=== PATIENT | male | born 1945 | race Caucasian/White ===

== ENCOUNTER 2018-05-27 10:26 | Day surgery (SDC) | payer MEDICARE ==
[2012-09-30 00:24] VITALS: BMI 31.9
[~2018-05-27 10:26] MED LIST: Midazolam 2 MG/2 ML VIAL ONE; Propofol 10 mg/ml Inj (20 ML) ONE
[2018-05-27] MEDS ORDERED: cefTRIAXone (Rocephin) 1 gm Inj ONE (10:51)
[2018-05-27] MEDS ORDERED: HYDROmorphone 0.5 mg/0.5 ml ISec IVP PRN (11:13)
[2018-05-27] MEDS ORDERED: Lactated Ringer's 1,000 ML IV SCH (11:15)
--- NOTE | 2018-05-27 11:49 | CARD ---
APPROVED REPORT Date of service: 05/27/2018 EKG Measurement Heart [id number] <Conclusion> Normal sinus rhythm Normal ECG
[2018-05-27 12:10] VITALS: PULSE 63; RESP 18; TEMP 97.5; O2SAT 95
[2018-05-27 13:19] VITALS: BP 127/74
--- NOTE | 2018-06-08 02:12 | HP ---
DATE OF EXAM: 06/07/2018 REASON FOR CONSULTATION: Elevated PSA. HISTORY OF PRESENT ILLNESS: This is a very pleasant gentleman with voiding dysfunction, irritating and obstructing urinary complaints, decreased force of stream, nocturia, and no gross hematuria currently. Elevated PSA, voiding dysfunction, nocturia . PAST MEDICAL AND SURGICAL HISTORY: IA and CVA. FAMILY HISTORY: As noted. SOCIAL HISTORY: Essentially unremarkable. REVIEW OF SYSTEMS: As above. No weight loss, chest pain, shortness of breath or leg pain. MEDICATIONS: See chart. ALLERGIES: SEE CHART. PHYSICAL EXAMINATION: GENERAL: Well nourished male, in no apparent distress. VITAL SIGNS: Normal. LUNGS: Clear. ABDOMEN: Soft and nontender. GENITOURINARY: Normal phallus. There are no testicular masses. RECTAL: A 30 g prostate, soft and smooth nodule is appreciated. LABORATORY DATA: See chart. PSA noted. DIAGNOSES: Elevated prostate specific antigen, voiding dysfunction, nocturia, irritating and obstructive voiding. PLAN: In summary, very pleasant gentleman with history as above, irritative and obstructive complaints, more obstructive in nature. we discussed options, risks, benefits, and alternatives to plans. FOLLOWUP: 1. Antibiotic prophylaxis. 2. Ultrasound of the prostate. 3. Ultrasound-guided prostate biopsy clinically. Risks and benefits discussed with the patient at length. We will plan to proceed. Faraz Neumann MD
--- NOTE | 2018-06-08 09:35 | PN ---
DATE: 05/27/2018 IMMEDIATE POSTOPERATIVE NOTE SUBJECTIVE: See the history and physical and operative note. This is an immediate postop note. The patient is status post prostate ultrasound and biopsy, antibiotic prophylactics were used. The patient is with vital signs within normal limits. He is in recovery room, now remains stable. The plan is as follows. We will discharge the patient home on antibiotics, and then further plans will follow. Faraz Neumann MD
--- NOTE | 2018-06-08 11:10 | PN ---
DATE: 05/27/2018 IMMEDIATE POSTOPERATIVE NOTE See history and physical and operative note. This is an immediate postop note. The patient is in recovery room. He is status post prostate ultrasound and biopsy. Antibiotic prophylaxis used. Extra antibiotics provided to the patient, and the patient would go home with antibiotics. This is an immediate postop note, the vital signs remained stable. The plan will be outpatient followup biopsy to get his prostate biopsy result. The patient is encouraged to call if any questions or problems that arise. He is given my cell phone number directly plus he is doing texting me to confirm appointment, etc., so he knows how to reach me very well. The patient is very reliable. He will be discharged home in stable condition. Faraz Neumann MD
--- NOTE | 2018-06-08 16:13 | PN ---
DATE: 05/27/2018 See the history and physical and operative note. The patient underwent a prostate biopsy, ultrasound-guided biopsy. Postop, he is doing well. His bladder function is normal. He is in the recovery room. This is an immediate postop note. Blood loss is less than 10 mL. He is doing well. The plan will be outpatient antibiotics. Faraz Neumann MD
--- NOTE | 2018-06-08 22:09 | OP ---
PROCEDURE DATE: 05/27/2018 PREOPERATIVE DIAGNOSES: Elevated prostate-specific antigen, voiding dysfunction, decreased force of stream, irritative and obstructive complaints. POSTOPERATIVE DIAGNOSES: Elevated prostate-specific antigen, voiding dysfunction, decreased force of stream, irritative and obstructive complaints, mostly of concern is elevated prostate-specific antigen. PROCEDURE: Ultrasound of prostate, ultrasound-guided prostate biopsy. SURGEON: Faraz Neumann MD. ESTIMATED BLOOD LOSS: Less than 10 mL. SPECIMENS: Benign prostate cores. Total of 12 cores were sent down. COMPLICATIONS: There were no complications. INDICATIONS: See history and physical for further details, but in brief, a very pleasant gentleman, elevated PSA, voiding and irritative and obstructive complaints mostly obstructive in nature. Overall, he has done better with Flomax that we provided. He is here now today for an ultrasound of prostate and ultrasound-guided prostate biopsy. DESCRIPTION OF PROCEDURE: After obtained informed consent, the patient was placed on the table. Routine monitor was placed. Time-out was called to confirm the patient and positioning. Antibiotic prophylaxis was used. The patient was in a decubitus position. We used the [employer] ultrasound machine. We took pictures in longitudinal and transverse. (I am not sure, if all these are saved images). But, I did take pictures of both. There is no specific hypoechoic lesion. We now began random biopsies of left base, left mid, left apex, right base, right mid, right apex. Total of lateral, medial, lateral, medial. Total of 12 cores were sent down in two jars. nursing issue. But we did a total of 12 cores. Overall and each time we do, we checked the specimen to make sure the container has a good specimen in it. We repeat the biopsy if not. Overall, the patient tolerated biopsy. Rectal exam is within normal limits. The patient tolerated the procedure well without complication. Faraz Neumann MD
== END 2018-05-27 13:00 | disposition home or self-care (01) ==
LOC: SDS 10:26
PROVIDERS: ATTEND Urology
DX: N40.1 Benign prostatic hyperplasia with lower urinary tract symptoms (principal); R35.1 Nocturia; R97.20 Elevated prostate specific antigen [PSA]; I25.2 Old myocardial infarction; Z86.73 Personal history of transient ischemic attack (TIA), and cerebral infarction without residual deficits
CPT/HCPCS: 55700; 88305; 93005; J0696; J1170; J1580; J2250; J2704; J3010; J7120 ×2